=== PATIENT | male | born 1955 | race American Indian/Alaskan Native ===

== ENCOUNTER 2018-12-08 11:17 | Day surgery (SDC) | payer OTHER ==
--- NOTE | 2018-12-08 10:57 | CP.SDSHP ---
Same Day Surgery H & P - History Proposed Procedure: colonoscopy Pre-Op Diagnosis: screening - Previous Medical/Surgical History Cardiac: Hypertension Previous Surgical History: L mastectomy - Allergies Allergies: Allergies Unobtainable Allergy (Verified 06/26/14 13:04) - Date & Time Date: 12/08/18 Time: 10:57 Short Stay Discharge - Short Stay Discharge Admitting Diagnosis/Reason for Visit: ENCOUNTER FOR SCREENING FOR MALIGNANT NEOPLASM OF Disposition: HOME/ ROUTINE
[2018-12-08 11:36] VITALS: BMI 37.5
[2018-12-08] MEDS ORDERED: Propofol 10 mg/ml Inj (20 ML) ONE ×2 (12:18→12:37)
[2018-12-08] MEDS ORDERED: Lactated Ringer's 500 ML IV SCH ×2 (13:00→13:15)
[2018-12-08 13:14] VITALS: TEMP 98.7
[2018-12-08 13:38] VITALS: O2SAT 100
[2018-12-08 13:41] VITALS: BP 103/62; PULSE 68; RESP 18
== END 2018-12-08 13:38 | disposition home or self-care (01) ==
LOC: C.ENDO 11:17
PROVIDERS: ATTEND Colon & Rectal Surgery
DX: Z12.11 Encounter for screening for malignant neoplasm of colon (principal); D12.4 Benign neoplasm of descending colon; K57.30 Diverticulosis of large intestine without perforation or abscess without bleeding
CPT/HCPCS: 45385; 88305; J2001; J2704; J7120